=== PATIENT | male | born 1995 | race Caucasian/White ===

== ENCOUNTER 2017-12-21 09:24 | Emergency (ER) | payer SELFPAY ==
[2017-12-21 09:24] VITALS: BP 145/85; PULSE 80; RESP 15; TEMP 36.6; O2SAT 100; BMI 20.2
[2017-12-21] MEDS: Ketorolac 60 MG/2 ML Vial IM (10:20)
--- NOTE | 2017-12-21 10:45 | ED.VISSUMM ---
- ER Visit Summary Date of Service: 12/21/17 Chief Complaint: Back pain History of Present Illness: The patient is a 22 M presenting with back pain which radiates to his chest. This started 30 minutes prior to arrival. He states he was carrying a bucket and started having pain in his right upper back which radiated to his right side of his chest. He had mild shortness of breath associated with this. No other complaints. Physical Examination: Vitals are stable. Patient is afebrile. Alert no acute distress. HEENT exam is unremarkable. Neck is supple. Lungs are clear and equal bilaterally. Chest wall tenderness with no crepitus Heart is regular rate and rhythm. Abdomen is soft nontender nondistended. Back: right paraspinal thoracic muscle tenderness, no midline tenderness Extremities are unremarkable. Skin is warm and dry. No focal neurologic deficit. Remainder of exam is unremarkable. Emergency Department Course and Treatment: Patient was given Toradol IM. EKG is sinus rate is 76 with no acute ischemic changes. Chest x-ray shows no acute process. On reevaluation, patient is feeling much improved. He is given a prescription for Naprosyn. He is advised to follow-up with his primary care physician. Advised return to ED if worsening complaints. Disposition: Discharge home Impression: Back pain, chest wall pain This note was generated with [employer] dictation software. It may contain incorrect words, spelling, and punctuation that were not noted in review of the chart prior to signing ED Disposition - Plan for ED Patient: Chief Complaint: Back Referrals: Chao Jauregui DO [Primary Care Provider] -
--- NOTE | 2017-12-21 11:11 | ED.DEP ---
ED Disposition - Plan for ED Patient: Chief Complaint: Back Instructions: ED Neck Back Pain General Prescriptions: Naproxen [Naprosyn] 500 mg PO BID PRN #20 tablet Referrals: Chao Jauregui DO [Primary Care Provider] -
[2017-12-21 11:16] VITALS: BP 119/64; PULSE 68; RESP 18; O2SAT 100
== END 2017-12-21 11:20 | disposition home or self-care (01) ==
LOC: ED 10:52
PROVIDERS: Emergency Provider Emergency Medicine; Family Provider Preventive Medicine Occupational Medicine; PCP Preventive Medicine Occupational Medicine
DX: M54.6 Pain in thoracic spine (principal); R07.89 Other chest pain
CPT/HCPCS: 71045; 93005; 96372; 99282